=== PATIENT | female | born 1980 | race Caucasian/White ===

== ENCOUNTER → 2018-06-04 | Outpatient (CLI) | payer OTHER ==
[~2018-06-04] MED LIST: ACHYD1T PO; CYAN250010 PO; DCS100C PO; DEXL60CA PO; FAMO-119 PO; IBP800T PO; PNT40TEC PO
--- NOTE | 2018-06-04 16:01 | Diagnostic Imaging Report ---
INDICATION: Right breast calcification. Patient presents for additional views. Correlation is made with recent screening study from 05/05/2018 and prior mammogram from 04/07/12. Unilateral right 2-D and 3-D diagnostic mammography was performed including magnification CC as well as conventional medial lateral view. Calcifications are identified in the retroareolar slightly lateral right breast. Calcifications appear to be primarily punctate. No definite branching or pleomorphism is seen. No linearity is identified. No soft tissue component is identified. No other abnormality is seen. IMPRESSION: BI-RADS 3 Right breast calcification, likely benign. Even so, followup right mammogram in 6 months is recommended to confirm stability. ACR BI-RADS Category 3: Probably benign findings. Result letter will be mailed to the patient. Note: At least 10% of breast cancer is not imaged by mammography. Dictated by: Dictated on workstation # [id number]
== END ==
LOC: RAD 13:03
PROVIDERS: ATTEND Family Medicine
DX: R92.1 Mammographic calcification found on diagnostic imaging of breast (principal); N60.11 Diffuse cystic mastopathy of right breast

== ENCOUNTER → 2018-11-17 | Outpatient (CLI) | payer OTHER ==
--- NOTE | 2018-11-17 13:39 | Diagnostic Imaging Report ---
INDICATION: Bilateral breast pain as well as 6 month followup of right breast calcifications. COMPARISON: 05/13/2018, 12/02/2017, and 04/07/2012. TECHNIQUE: Bilateral 2D and 3D diagnostic mammography was performed with CAD. FINDINGS: Both breasts remain heterogeneously dense, limiting the sensitivity of mammography. The previously noted punctate calcifications in the retroareolar right breast appear to be stable and likely benign. No new mass or malignant appearing microcalcifications are seen. The axillae are unremarkable. IMPRESSION: 1. Stable right breast calcifications in the retroareolar region. Continued 6 month followup is recommended to confirm stability. 2. No other significant abnormality is seen. Even so, sonographic interrogation of the areas of pain in the bilateral breasts is recommended and will be performed today. ACR BI-RADS Category 0: Incomplete. (Needs additional imaging evaluation). Result letter will be mailed to the patient. Note: At least 10% of breast cancer is not imaged by mammography. Dictated by: Dictated on workstation # [id number]
--- NOTE | 2018-11-17 15:00 | Diagnostic Imaging Report ---
INDICATION: Bilateral breast pain. TECHNIQUE: Sonographic interrogation of the areas of pain in the bilateral breasts was performed. This corresponds to the outer portions of both breasts. No sonographic abnormality is seen. No solid or cystic mass is detected. IMPRESSION: 1. No sonographic abnormality is seen at the areas of pain. Clinical followup is recommended. 2. Continued 6 month followup of the previously noted right breast calcifications to confirm stability. ACR BI-RADS Category 3: Probably benign findings. Dictated by: Dictated on workstation # [id number]
== END ==
LOC: RAD 13:05
PROVIDERS: ATTEND Nurse Practitioner Family
DX: N60.11 Diffuse cystic mastopathy of right breast (principal)
CPT/HCPCS: 76642; 77066

== ENCOUNTER → 2019-05-20 | Outpatient (CLI) | payer OTHER ==
--- NOTE | 2019-05-20 18:44 | Diagnostic Imaging Report ---
INDICATION: Right breast calcifications, six-month followup. COMPARISON: Correlation is made with prior mammograms from 11/17/2018 and 05/13/2018. TECHNIQUE: Unilateral right 2-D and 3-D diagnostic mammography was performed. The current study was also evaluated with a Computer Aided Detection (CAD) system. 3-D tomosynthesis was also performed and reviewed. FINDINGS: Scattered fibroglandular densities in the right breast are noted. Calcifications in the retroareolar right breast appear to be stable. No mass is seen. Right axilla is unremarkable. IMPRESSION: Stable right mammogram. Additional six-month followup of right breast calcifications is recommended to confirm stability. ACR BI-RADS Category 3: Probably benign findings. Result letter will be mailed to the patient. Note: At least 10% of breast cancer is not imaged by mammography. Dictated by: Dictated on workstation # [id number]
== END ==
LOC: RAD 08:30
PROVIDERS: ATTEND Nurse Practitioner Family
DX: N60.11 Diffuse cystic mastopathy of right breast (principal); R92.1 Mammographic calcification found on diagnostic imaging of breast

== ENCOUNTER → 2019-11-13 | Outpatient (CLI) | payer OTHER ==
--- NOTE | 2019-11-13 14:08 | Diagnostic Imaging Report ---
INDICATION: Six-month follow-up right breast calcifications. Correlation is made with prior mammograms from 05/20/2019, 11/17/2018, as well as 06/04/2018. 2-D and 3-D bilateral diagnostic mammography was performed. The current study was also evaluated with a Computer Aided Detection (CAD) system. 3-D Tomographic imaging was also performed. FINDINGS: Both breasts remain heterogeneously dense, limiting sensitivity of mammography. The cluster of microcalcifications in retroareolar right breast is stable. These now show 18 months of stability. No mass is seen. Left breast is unremarkable. Axillae are unremarkable. IMPRESSION: Stable bilateral mammograms and right breast calcifications. Calcifications now show 18 months of stability. One final six-month follow-up is recommended. ACR BI-RADS Category 3: Probably benign findings. Result letter will be mailed to the patient. Note: At least 10% of breast cancer is not imaged by mammography. Dictated by: Dictated on workstation # [id number]
== END ==
LOC: RAD 13:25
PROVIDERS: ATTEND Family Medicine
DX: N60.11 Diffuse cystic mastopathy of right breast (principal); R92.1 Mammographic calcification found on diagnostic imaging of breast
CPT/HCPCS: 77066

== ENCOUNTER → 2020-06-20 | Outpatient (CLI) | payer OTHER ==
--- NOTE | 2020-06-20 13:02 | Diagnostic Imaging Report ---
INDICATION: Six-month followup right breast calcifications. Correlation is made with prior mammograms dating back to 2018. Unilateral right 2-D and 3-D diagnostic mammography was performed with CAD. Right breast remains heterogenously dense, limiting sensitivity of mammography. Microcalcifications in the retroareolar right breast are stable. This now shows 2 years of stability. No new mass or malignant appearing microcalcifications are seen. Right axilla is unremarkable. IMPRESSION: BI-RADS Category 2 Stable right mammogram. Right breast calcifications now show 2 years of stability. The patient may return to routine annual screening calcifications ACR BI-RADS Category 2: Benign findings. Result letter will be mailed to the patient. Note: At least 10% of breast cancer is not imaged by mammography. Dictated by: Dictated on workstation # [id number]
== END ==
LOC: RAD 12:45
PROVIDERS: ATTEND Nurse Practitioner Family
DX: N60.11 Diffuse cystic mastopathy of right breast (principal)
CPT/HCPCS: 77065; G0279

== ENCOUNTER → 2022-01-18 | Outpatient (CLI) | payer OTHER ==
--- NOTE | 2022-01-18 14:48 | Diagnostic Imaging Report ---
INDICATION: Routine screening. COMPARISON is made with prior mammogram from 11/13/2019 and 11/17/2018. 2-D and 3-D bilateral screening mammography was performed with CAD. Both breasts are heterogeneously dense, limiting the sensitivity of mammography. The right breast calcifications appears stable. No mass or malignant-appearing microcalcifications are seen. Axillae are unremarkable. IMPRESSION: BI-RADS Category 2 No mammographic features suspicious for malignancy are identified. ACR BI-RADS Category 2: Benign findings. Result letter will be mailed to the patient. Note: At least 10% of breast cancer is not imaged by mammography. Dictated by: Dictated on workstation # [id number]
== END ==
LOC: RAD 10:45
PROVIDERS: ATTEND Nurse Practitioner Family
DX: Z12.31 Encounter for screening mammogram for malignant neoplasm of breast (principal)
CPT/HCPCS: 77063; 77067